=== PATIENT | male | born 1975 | race African-American/Black ===

== ENCOUNTER 2024-09-02 14:18 | Inpatient (IN) | payer OTHER ==
[2024-09-02 14:51] VITALS: BMI 27.8
[2024-09-02] MEDS ORDERED: guaiFENesin 600 MG TABLET.ER (FP) PO PRN (15:32)
[2024-09-02] MEDS ORDERED: LORazepam 1 MG TABLET PO PRN (15:32)
[2024-09-02] MEDS ORDERED: MAG HYDROX/AL HYDROX/SIMETH 30 ML UNIT-DOSE CUP PO PRN (15:32)
[2024-09-02] MEDS ORDERED: ONDANSETRON *ODT* 4 MG TABLET SL PRN (15:32)
[2024-09-02] MEDS ORDERED: ACETAMINOPHEN 325 MG TABLET (FP) PO PRN (15:32)
[2024-09-02] MEDS ORDERED: BISMUTH SUBSALICYLATE 524 MG/30 ML PO PRN (15:32)
[2024-09-02] MEDS ORDERED: MAGNESIUM HYDROX 2400MG/30ML ORAL SUSPENSION 30 ML CUP PO PRN (15:32)
[2024-09-02] MEDS ORDERED: NALOXONE (NARCAN) HCL 4 MG/0.1 ML SPRAY NS PRN (15:32)
[2024-09-02] MEDS ORDERED: POLYETHYLENE GLYCOL (HEALTHYLAX) 3350 17 GM PACKET PO PRN (15:32)
[2024-09-02] MEDS ORDERED: IBUPROFEN 400 MG TABLET (FP) PO PRN (15:32)
[2024-09-02] MEDS ORDERED: DICYCLOMINE HCL 10 MG CAPSULE PO PRN (15:32)
[2024-09-02] MEDS ORDERED: IBUPROFEN 600 MG TABLET (FP) PO PRN (15:32)
[2024-09-02] MEDS ORDERED: hydrOXYzine PAMOATE 25 MG CAPSULE (FP) PO PRN (15:32)
[2024-09-02] MEDS ORDERED: BENZOCAINE/MENTHOL (CHLORASEPTIC ) LOZENGE MM PRN (15:32)
[2024-09-02] MEDS ORDERED: BENZONATATE 200 MG CAPSULE PO PRN (15:32)
[2024-09-02] MEDS ORDERED: LOPERAMIDE HCL 2 MG CAPSULE PO PRN (15:32)
[2024-09-02] MEDS ORDERED: amLODIPine BESYLATE 5 MG TABLET (FP) ONE (16:42)
[2024-09-02] MEDS: NALTREXONE HCL 50 MG TABLET PO ONE (16:47)
[2024-09-02] MEDS: amLODIPine BESYLATE 5 MG TABLET (FP) PO SCH (16:47)
[2024-09-02] MEDS: LORazepam 2 MG TABLET PO SCH (17:43)
[2024-09-02] MEDS: ASPIRIN COATED 81 MG TABLET.EC PO SCH (21:49)
[2024-09-02] MEDS: cloNIDine HCL 0.1 MG TABLET PO ONE (21:49)
[2024-09-02] MEDS: THIAMINE 100 MG TABLET PO SCH (22:03)
[2024-09-02] MEDS: MELATONIN 5 MG TABLETS PO SCH (22:06)
[2024-09-03] MEDS: METHOCARBAMOL 500 MG TABLET PO PRN (04:30)
[2024-09-03] MEDS: PRENATAL VITAMINS W/ FOLIC ACID TABLET (FP) PO SCH (10:04)
[2024-09-03] MEDS: NALTREXONE HCL 50 MG TABLET PO SCH (10:05)
[2024-09-03 11:52] LABS: CHLORIDE 113 mmol/L (98-107); POTASSIUM 4.2 mmol/L (3.5-5.1); SODIUM 144 mmol/L (136-145)
[2024-09-03 11:54] LABS: HEMATOCRIT 34.9 % (40.1-51.0); HEMOGLOBIN 11.8 g/dL (13.7-17.5); MCHC 33.8 g/dl (32.3-36.5); MEAN CELL VOLUME 86.6 fl (79.0-92.2); PLATELET COUNT 65 x10^3/uL (163-337); RDW 20.2 % (12.1-15.9)
[2024-09-03 11:55] LABS: CALCIUM 9.3 mg/dL (8.5-10.1)
[2024-09-03 11:56] LABS: ALBUMIN 2.8 g/dl (3.4-5.0); ANION GAP 7 mmol/L (4-13); BLOOD UREA NITROGEN 13.7 mg/dL (7-18); CO2 24 mmol/L (21-32); GLUCOSE,RANDOM 106 mg/dL (74-106)
[2024-09-03 11:59] LABS: CREATININE 0.8 mg/dL (0.55-1.3); SGOT/AST 57 U/L (15-37); SGPT/ALT 38 U/L (13-61)
[2024-09-03 12:00] LABS: BILIRUBIN,TOTAL 1.9 mg/dL (0.2-1); TOT PROT 6.2 g/dl (6.4-8.2)
[2024-09-03 12:01] LABS: ALK PHOS 372 U/L (45-117)
[2024-09-03] MEDS: LACTULOSE 20 GM/30 ML UDC (FOR ORAL USE ONLY) PO SCH (17:29)
[2024-09-03 21:42] VITALS: TEMP 97.8
[2024-09-04] MEDS: LORazepam 1 MG TABLET PO SCH (06:00)
[2024-09-04 11:14] VITALS: BP 136/68; PULSE 87; RESP 18
[2024-09-05] MEDS ORDERED: LORazepam 0.5 MG TABLET PO PRN
[2024-09-05] MEDS ORDERED: LORazepam 0.5 MG TABLET PO SCH (05:00)
[2024-09-06] MEDS ORDERED: LORazepam 0.5 MG TABLET PO ONE (05:00)
== END 2024-09-04 09:29 | disposition short-term general hospital (02) | DRG 775 ==
LOC: YASAS 14:18 → Y3N 17:08
PROVIDERS: ADMIT Allergy & Immunology; ATTEND Allergy & Immunology
PROC: HZ2ZZZZ Detoxification Services for Substance Abuse Treatment (ICD-10-PCS; principal; 2024-09-02)
DX: F10.230 Alcohol dependence with withdrawal, uncomplicated (principal); F12.20 Cannabis dependence, uncomplicated; F17.210 Nicotine dependence, cigarettes, uncomplicated; D69.6 Thrombocytopenia, unspecified; E72.20 Disorder of urea cycle metabolism, unspecified; J45.909 Unspecified asthma, uncomplicated; E80.6 Other disorders of bilirubin metabolism; R41.82 Altered mental status, unspecified
CPT/HCPCS: 36415; 80053; 80305; 80307; 82140; 82962; 83036; 85027; 86780; 93005; 93010